=== PATIENT | female | born 1950 | race Caucasian/White ===

== ENCOUNTER 2018-02-08 13:10 | Inpatient (IN) | payer MEDICARE ==
[2018-02-08] VITALS (13 sets, daily range): BP systolic 115–138; BP diastolic 60–81
[~2018-02-08] VITALS: Ht 157.5 cm; Wt 37.8 kg
[~2018-02-08 13:10] MED LIST: ESTR1TAB19 PO; FLUO-1 PO; FLUT16SP26 BOTHNARES; MONT10TA21 PO; SYN0.088T PO; VALA100027 PO
[2018-02-08 13:57] LABS: CLARITY,URINE CLEAR (Clear); COLOR,URINE YELLOW (Yellow); GLUCOSE, URINE NEGATIVE (Neg); KETONES,URINE NEGATIVE (Neg); LEUKOCYTE ESTERASE ,URINE SMALL (Neg); NITRITES, URINE NEGATIVE (Neg); OCCULT BLOOD,URINE NEGATIVE (Neg); PH,URINE 6.5 (4.8-8.0); PROTEIN,URINE NEGATIVE (Neg); UROBILINOGEN,URINE 0.2 E.U/dL (0.2-1.0)
[2018-02-08 13:59] LABS: UA COLLECTION TYPE CLN CATCH MIDSTREAM
[2018-02-08 14:03] LABS: BASOPHILS % (AUTO) 0.1 % (0-1); EOSINOPHILS # (AUTO) 0.1 X10'3 (0-0.9); EOSINOPHILS % (AUTO) 1.1 % (0-6); HEMATOCRIT 34.9 % (35.0-45.0); HEMOGLOBIN 12.1 g/dl (12.0-16.0); LYMPHOCYTES # (AUTO) 1.4 X10'3 (1.1-4.8); LYMPHOCYTES % (AUTO) 19.4 % (21-51); MEAN CORPUSCULAR HEMOGLOBIN 32.7 PG (27.0-31.0); MEAN CORPUSCULAR HGB CONC 34.8 % (33.0-36.5); MEAN CORPUSCULAR VOLUME 94.2 FL (78-98); MEAN PLATELET VOLUME 7.8 FL (7.4-10.4); MONOCYTES # (AUTO) 0.9 X10'3 (0-0.9); MONOCYTES % (AUTO) 12.8 % (2-12); NEUTROPHILS # (AUTO) 4.7 X10'3 (1.8-7.7); NEUTROPHILS % (AUTO) 66.6 % (42-75); PLATELET COUNT 345 X10'3 (140-440); RED CELL DISTRIBUTION WIDTH 15.6 % (11.5-14.5)
[2018-02-08 14:17] LABS: ALANINE AMINOTRANSFERASE 30 U/L (12-78); ALBUMIN 3.4 G/DL (3.4-5.0); ALBUMIN/GLOBULIN RATIO 0.8 (1.1-1.5); ALKALINE PHOSPHATASE 91 IU/L (46-116); ANION GAP 10 (8-16); ASPARTATE AMINO TRANSFERASE 36 U/L (10-37); BILIRUBIN,TOTAL 0.3 MG/DL (0.1-1.0); BLOOD UREA NITROGEN 22 MG/DL (7-18); BUN/CREATININE RATIO 21.4 (6.6-38.0); CALCIUM 9.3 MG/DL (8.5-10.1); CHLORIDE 103 MMOL/L (99-107); CREATININE 1.03 MG/DL (0.40-0.90); GLUCOSE 92 MG/DL (70-104); POTASSIUM 4.2 MMOL/L (3.5-5.1); SODIUM 142 MMOL/L (135-145); TOTAL CARBON DIOXIDE 28.6 MMOL/L (24-32); TOTAL PROTEIN 7.8 G/DL (6.4-8.2); eGFR 53 ML/MIN
[2018-02-08 14:28] LABS: BACTERIA,URINE 1+ /HPF (Neg); RBC,URINE NONE SEEN /HPF (0-2); SQUAMOUS EPITHELIAL CELL,UR MANY /LPF (FEW); WBC,URINE 0-4 /HPF (0-4)
[2018-02-08 15:25] LABS: CLARITY,URINE Clear (Clear); COLOR,URINE Yellow (Yellow); GLUCOSE, URINE Negative (Neg); KETONES,URINE Trace mg/dl (Neg); LEUKOCYTE ESTERASE ,URINE Moderate (Neg); NITRITES, URINE Negative (Neg); OCCULT BLOOD,URINE Negative (Neg); PH,URINE 6.5 (4.8-8.0); PROTEIN,URINE Negative (Neg)
[2018-02-08] MEDS ORDERED: normal saline 1000ml 1,000 ML IV ONE (15:30)
[2018-02-08 15:35] LABS: UA COLLECTION TYPE CLN CATCH MIDSTREAM
[2018-02-08 15:53] LABS: BACTERIA,URINE 2+ /HPF (Neg); RBC,URINE NONE SEEN /HPF (0-2); SQUAMOUS EPITHELIAL CELL,UR MANY /LPF (FEW); WBC,URINE 0-4 /HPF (0-4)
[2018-02-08] MEDS ORDERED: levoFLOXACIN-Levaquin 750MG/D5 150 ML IV STA (16:37)
[2018-02-08] MEDS ORDERED: metroNIDAZOLE-Flagyl 500mg/NS 100 ML IV STA (16:37)
[2018-02-08] MEDS ORDERED: BUPIVAcaine/PF 2.5 mg/ml (0.25%) 30ml vial ONE (17:14)
[2018-02-08] MEDS ORDERED: LIDOcaine 1% 30ml preserv. free vial ONE (17:14)
[2018-02-08] MEDS ORDERED: ondansetron/PF 4mg/2ml inj IV PRN (17:35)
[2018-02-08] MEDS ORDERED: morphine 4 MG/ML inj SYRINge IV PRN ×2 (17:35)
[2018-02-08] MEDS ORDERED: ringers solution, lacted 1,000 ML IV SCH (17:35)
[2018-02-08] MEDS ORDERED: fentaNYL/PF 50MCG/1 ML 2ML syringe IV PRN ×2 (17:35)
[2018-02-08] MEDS ORDERED: labetalol 5mg/ml 20ml inj. IV PRN (17:35)
[2018-02-08] MEDS ORDERED: hydrALAZINE 20mg/ml inj. IV PRN (17:35)
[2018-02-08] MEDS: dextrose 5%-1/2 normal saline 1,000 ML IV SCH (17:36)
[2018-02-08] MEDS ORDERED: magnesium hydroxide 30ml (MOM) UD suspension PO PRN (17:40)
[2018-02-08] MEDS ORDERED: mag hydrox/Alum hydrox/simeth 30ml oral suspension PO PRN (17:40)
[2018-02-08] MEDS ORDERED: acetaminophen 325mg tablet PO PRN (17:40)
[2018-02-08] MEDS: normal saline 1000ml 1,000 ML IV SCH (17:51)
[2018-02-08] MEDS ORDERED: glycopyrrolate 0.2mg/ml inj ONE (17:55)
[2018-02-08] MEDS ORDERED: sevoflurane 250ml liquid IH ONE (17:55)
[2018-02-08] MEDS ORDERED: dexamethasone sod phosphate 4mg/ml inj. ONE (17:55)
[2018-02-08] MEDS ORDERED: neostigmine methylsulfate 1 MG/ML 10ml vial ONE (17:55)
[2018-02-08] MEDS ORDERED: propofol inj 20 ML IV ONE (18:04)
[2018-02-08] MEDS ORDERED: rocuronium 10mg/ml inj IV ONE (18:04)
[2018-02-08] MEDS ORDERED: ondansetron/PF 4mg/2ml inj ONE (18:04)
[2018-02-08] MEDS ORDERED: LIDOcaine 2% (20mg/ml) 5ml vial ONE (18:04)
[2018-02-08] MEDS ORDERED: fentaNYL/PF 50MCG/1 ML 2ML syringe ONE (18:06)
[2018-02-08] MEDS ORDERED: midazolam 2 mg/2 ml injection ONE (18:07)
[2018-02-08] MEDS ORDERED: traMADol 50MG tablet PO PRN (19:40)
[2018-02-08] MEDS ORDERED: HYDROmorphone 2mg/ml vial IV PRN (19:45)
[2018-02-08] MEDS: heparin, porcine 5000 units/ml vial SQ SCH (20:00)
[2018-02-09] VITALS: BP 121/60
[2018-02-09] MEDS: normal saline 1000ml 1,000 ML IV SCH ×2 (00:08→14:37)
[2018-02-09] MEDS: metroNIDAZOLE-Flagyl 500mg/NS 100 ML IV SCH ×3 (00:09→16:06)
[2018-02-09] MEDS: dextrose 5%-1/2 normal saline 1,000 ML IV SCH ×2 (02:55→13:36)
[2018-02-09 04:00] VITALS: BP 96/56
[2018-02-09 05:53] LABS: BASOPHILS % (AUTO) 0.1 % (0-1); EOSINOPHILS # (AUTO) 0.1 X10'3 (0-0.9); EOSINOPHILS % (AUTO) 1.2 % (0-6); HEMATOCRIT 30.8 % (35.0-45.0); HEMOGLOBIN 10.6 g/dl (12.0-16.0); LYMPHOCYTES # (AUTO) 0.7 X10'3 (1.1-4.8); LYMPHOCYTES % (AUTO) 10.6 % (21-51); MEAN CORPUSCULAR HEMOGLOBIN 32.9 PG (27.0-31.0); MEAN CORPUSCULAR HGB CONC 34.4 % (33.0-36.5); MEAN CORPUSCULAR VOLUME 95.6 FL (78-98); MEAN PLATELET VOLUME 8.7 FL (7.4-10.4); MONOCYTES # (AUTO) 0.5 X10'3 (0-0.9); MONOCYTES % (AUTO) 7.3 % (2-12); NEUTROPHILS # (AUTO) 5.1 X10'3 (1.8-7.7); NEUTROPHILS % (AUTO) 80.8 % (42-75); PLATELET COUNT 285 X10'3 (140-440); RED BLOOD COUNT 3.22 X10'6 (4.20-5.60); RED CELL DISTRIBUTION WIDTH 15.6 % (11.5-14.5); WHITE BLOOD COUNT 6.3 X10'3 (4.5-11.0)
[2018-02-09 06:10] LABS: ALANINE AMINOTRANSFERASE 24 U/L (12-78); ALBUMIN 2.5 G/DL (3.4-5.0); ALBUMIN/GLOBULIN RATIO 0.7 (1.1-1.5); ALKALINE PHOSPHATASE 68 IU/L (46-116); ANION GAP 8 (8-16); ASPARTATE AMINO TRANSFERASE 25 U/L (10-37); BILIRUBIN,TOTAL 0.3 MG/DL (0.1-1.0); BLOOD UREA NITROGEN 17 MG/DL (7-18); BUN/CREATININE RATIO 19.8 (6.6-38.0); CALCIUM 8.1 MG/DL (8.5-10.1); CHLORIDE 107 MMOL/L (99-107); CREATININE 0.86 MG/DL (0.40-0.90); GLUCOSE 150 MG/DL (70-104); POTASSIUM 4.6 MMOL/L (3.5-5.1); SODIUM 140 MMOL/L (135-145); TOTAL CARBON DIOXIDE 24.6 MMOL/L (24-32); TOTAL PROTEIN 6.1 G/DL (6.4-8.2); eGFR 65 ML/MIN
[2018-02-09 07:30] VITALS: BP 115/68
[2018-02-09] MEDS ORDERED: levoFLOXACIN-Levaquin 500mg/D5 100 ML IV SCH (08:00)
[2018-02-09] MEDS: heparin, porcine 5000 units/ml vial SQ SCH (08:50)
[2018-02-09 11:00] VITALS: BP 103/55
[2018-02-10 11:38] LABS: CANCER ANTIGEN 125 250.7 U/mL (0.0-38.1)
== END 2018-02-09 17:53 | disposition home or self-care (01) | DRG 829 ==
LOC: ER 13:11 → ED HOLD 17:36 → SUR 3N 19:37
PROVIDERS: ADMIT Emergency Medicine; ATTEND Surgery
PROC: 0DBW4ZX Excision of Peritoneum, Percutaneous Endoscopic Approach, Diagnostic (ICD-10-PCS; 2018-02-08)
PROC: 0DTJ4ZZ Resection of Appendix, Percutaneous Endoscopic Approach (ICD-10-PCS; principal; 2018-02-08 17:55)
DX: C80.0 Disseminated malignant neoplasm, unspecified (principal); E44.1 Mild protein-calorie malnutrition; F03.90 Unspecified dementia, unspecified severity, without behavioral disturbance, psychotic disturbance, mood disturbance, and anxiety; Z68.1 Body mass index [BMI] 19.9 or less, adult; E03.9 Hypothyroidism, unspecified; G40.909 Epilepsy, unspecified, not intractable, without status epilepticus; K38.1 Appendicular concretions; F32.9 Major depressive disorder, single episode, unspecified; F41.9 Anxiety disorder, unspecified; Z88.0 Allergy status to penicillin; Z88.6 Allergy status to analgesic agent; Z88.8 Allergy status to other drugs, medicaments and biological substances; Z90.710 Acquired absence of both cervix and uterus; Z90.49 Acquired absence of other specified parts of digestive tract
CPT/HCPCS: 36415; 71250; 74176; 80053; 81001; 82378; 83605; 85025; 85610; 86301; 86304; 87070; 93005; 96360; 99285; A6255; A7000; J1100; J1644; J1956; J2001; J2250; J2405; J2704; J2710; J3010; J3490; J7030; J7120

== ENCOUNTER 2018-07-24 16:28 | Emergency (ER) | payer MEDICARE ==
[~2018-07-24] VITALS: Ht 154.9 cm; Wt 38.6 kg
[~2018-07-24 16:28] MED LIST changes: +BISA10SU60 RC
[2018-07-24 17:12] LABS: BASOPHILS % (AUTO) 0.3 % (0-1); EOSINOPHILS % (AUTO) 0.7 % (0-6); HEMATOCRIT 36.2 % (35.0-45.0); HEMOGLOBIN 12.3 g/dl (12.0-16.0); LYMPHOCYTES % (AUTO) 22.3 % (21-51); MEAN CORPUSCULAR HEMOGLOBIN 34.1 PG (27.0-31.0); MEAN CORPUSCULAR HGB CONC 34.1 % (33.0-36.5); MEAN CORPUSCULAR VOLUME 100.1 FL (78-98); MEAN PLATELET VOLUME 7.9 FL (7.4-10.4); MONOCYTES # (AUTO) 0.5 X10'3 (0-0.9); MONOCYTES % (AUTO) 11.3 % (2-12); NEUTROPHILS % (AUTO) 65.4 % (42-75); PLATELET COUNT 290 X10'3 (140-440); RED BLOOD COUNT 3.62 X10'6 (4.20-5.60); RED CELL DISTRIBUTION WIDTH 17.4 % (11.5-14.5); WHITE BLOOD COUNT 4.7 X10'3 (4.5-11.0)
[2018-07-24 17:27] LABS: ALANINE AMINOTRANSFERASE 27 U/L (12-78); ALBUMIN 3.6 G/DL (3.4-5.0); ALKALINE PHOSPHATASE 67 IU/L (46-116); ANION GAP 12 (8-16); ASPARTATE AMINO TRANSFERASE 30 U/L (10-37); BILIRUBIN,TOTAL 0.4 MG/DL (0.1-1.0); BLOOD UREA NITROGEN 21 MG/DL (7-18); BUN/CREATININE RATIO 18.6 (6.6-38.0); CALCIUM 9.1 MG/DL (8.5-10.1); CHLORIDE 102 MMOL/L (99-107); CREATININE 1.13 MG/DL (0.40-0.90); GLUCOSE 179 MG/DL (70-104); POTASSIUM 3.5 MMOL/L (3.5-5.1); SODIUM 137 MMOL/L (135-145); TOTAL CARBON DIOXIDE 22.9 MMOL/L (24-32); TOTAL PROTEIN 7.1 G/DL (6.4-8.2); eGFR 48 ML/MIN
[2018-07-24 17:33] LABS: ETHANOL < 0.010 GM/DL (0.0-0.010)
[2018-07-24 18:05] LABS: CLARITY,URINE CLEAR (Clear); COLOR,URINE YELLOW (Yellow); GLUCOSE, URINE NEGATIVE (Neg); KETONES,URINE TRACE mg/dl (Neg); LEUKOCYTE ESTERASE ,URINE NEGATIVE (Neg); NITRITES, URINE NEGATIVE (Neg); OCCULT BLOOD,URINE TRACE-INTACT (Neg); PROTEIN,URINE 30 mg/dl (Neg); UROBILINOGEN,URINE 0.2 E.U/dL (0.2-1.0)
[2018-07-24 18:06] LABS: UA COLLECTION TYPE CLN CATCH MIDSTREAM
[2018-07-24 18:16] LABS: URINE AMPHETAMINE SCREEN NEGATIVE (Neg); URINE BARBITUATE SCREEN NEGATIVE (Neg); URINE BENZODIAZEPINES SCREEN NEGATIVE (Neg); URINE CANNABINOID SCREEN POSITIVE (Neg); URINE COCAINE SCREEN NEGATIVE (Neg); URINE METHADONE SCREEN NEGATIVE (Neg); URINE OPIATE SCREEN POSITIVE (Neg); URINE PHENCYCLIDINE SCREEN NEGATIVE (Neg)
[2018-07-24 18:21] LABS: BACTERIA,URINE NONE SEEN /HPF (Neg); CAL OXALATE CRYSTALS 2+ /HPF (NEGATIVE); MUCUS STRANDS MANY /LPF (Neg); RBC,URINE 0-2 /HPF (0-2); SQUAMOUS EPITHELIAL CELL,UR FEW /LPF (FEW); WBC,URINE NONE SEEN /HPF (0-4)
[2018-07-24 18:42] VITALS: BP 95/64
== END 2018-07-24 18:45 | disposition home or self-care (01) ==
LOC: ER 16:29
DX: F03.91 Unspecified dementia, unspecified severity, with behavioral disturbance (principal); R45.851 Suicidal ideations; Z90.49 Acquired absence of other specified parts of digestive tract; Z90.710 Acquired absence of both cervix and uterus; Z88.0 Allergy status to penicillin; Z88.6 Allergy status to analgesic agent; Z88.5 Allergy status to narcotic agent; Z88.8 Allergy status to other drugs, medicaments and biological substances; Z79.899 Other long term (current) drug therapy
CPT/HCPCS: 36415; 80053; 80305; 80320; 81001; 84443; 85025; 99284